=== PATIENT | male | born 1990 | race African-American/Black ===

== ENCOUNTER 2022-07-18 04:00 | Emergency (ER) | payer OTHER ==
[~2022-07-18] VITALS: Ht 182.9 cm; Wt 145.1 kg
[2022-07-18 04:05] VITALS: BP 146/75
--- NOTE | 2022-07-18 04:08 | NUR ---
TO LOBBY A/W BED AMBULATORY
[2022-07-18 05:45] LABS: BASOPHILS % (AUTO) 0.2 % (0.0-2.0); EOSINOPHILS # (AUTO) 0.2 K/uL (0-0.4); EOSINOPHILS % (AUTO) 2.9 % (0.0-4.0); HEMATOCRIT 42.4 % (36-52); HEMOGLOBIN 13.6 g/dL (12.0-18.0); LYMPHOCYTES # (AUTO) 2.2 K/uL (2.0-11.5); LYMPHOCYTES % (AUTO) 33.9 % (20.5-51.1); MEAN CORPUSCULAR HEMOGLOBIN 25 pg (27-31); MEAN CORPUSCULAR HGB CONC 32 g/dL (33-37); MEAN CORPUSCULAR VOLUME 76.8 fL (80-94); MONOCYTES # (AUTO) 0.7 K/uL (0.8-1.0); NEUTROPHILS # (AUTO) 3.4 K/uL (1.8-7.7); PLATELET COUNT (AUTO) 194 K/uL (140-450); RED BLOOD CELL COUNT(AUTO) 5.52 MIL/uL (4.20-6.10); RED CELL DISTRIBUTION WIDTH 15.9 % (11.6-13.7); WHITE BLOOD COUNT (AUTO) 6.5 K/uL (4.8-10.8)
[2022-07-18 06:13] LABS: ALBUMIN 3.5 g/dL (3.4-5.0); ANION GAP 9.4 (8-16); CARBON DIOXIDE 29.2 mmol/L (21-32); CREATININE 1.1 mg/dL (0.6-1.3); POTASSIUM 4.6 mmol/L (3.5-5.1); TOTAL BILIRUBIN 0.3 mg/dL (0.0-1.0)
[2022-07-18] MEDS ORDERED: MECLIZINE 25 MG TAB PO ONE (06:20)
[2022-07-18] MEDS ORDERED: ONDANSETRON 4 MG ODT PO ONE (06:20)
[2022-07-18] MEDS ORDERED: DEXAMETHASONE 4 MG/ML VIAL PO ONE (06:25)
--- NOTE | 2022-07-18 06:32 | NUR ---
PT TAKEN TO CHAIR C
--- NOTE | 2022-07-18 06:46 | NUR ---
STREP AND COVID/TEVIN SWABS COLLECTED AND WALKED TO LAB
--- NOTE | 2022-07-18 06:59 | NUR ---
32 Y/O MALE BIBS, C/O SORE THROAT. PT STATES HIS "THROAT IS CLOSING UP." A/OX4, LETHARGIC AND DIFFICULT TO AROUSE. AMBULATORY W/O ASSISTANCE. UNLABORED BREATHING AND SPEAKING IN FULL SENTENCES.
--- NOTE | 2022-07-18 07:17 | NUR ---
Pt report given to KWAKU POPE. Transfer of care at this time.
[2022-07-18 07:23] LABS: ACETAMINOPHEN < 0.5 ug/ml (10-30); SALICYLATE < 2.8 mg/dL (2.8-20.0)
[2022-07-18 07:26] LABS: BARBITURATE, URINE NEGATIVE ng/ml (NEG <=200); BENZODIAZEPINE, URINE NEGATIVE ng/mL (NEG <=200); CANNABINOID, URINE NEGATIVE ng/mL (NEG <=50); COCAINE, URINE NEGATIVE ng/mL (NEG <=300); OPIATE, URINE NEGATIVE ng/mL (NEG <=2000); PHENCYCLIDINE SCREEN,URINE NEGATIVE ng/mL (NEG <=25)
--- NOTE | 2022-07-18 08:00 | NUR ---
PATIENT LAYING IN BED WITH EYES CLOSED, REFUSING TO ANSWER QUESTIONS, PATIENT PLACED ON BEDSIDE [employer]ELOPER, DR. ERWIN AWARE OF PATIENT STATUS.
[2022-07-18] MEDS ORDERED: cephALEXin 500 MG CAP PO ONE (08:20)
[2022-07-18] MEDS ORDERED: CEPH-588 PO (08:25)
--- NOTE | 2022-07-18 09:10 | NUR ---
PT REFUSING TO LEAVE, SECURITY CALLED BEDSIDE TO ASSIST.
[2022-07-18 09:11] VITALS: BP 148/91
--- NOTE | 2022-07-18 09:12 | NUR ---
Patient discharged with v/s stable. Written and verbal after care instructions ABOUT STIMULANT USE DISORDER AND STREP THROAT given and explained. Patient alert, oriented and verbalized understanding of instructions. Ambulatory with steady gait. All questions addressed prior to discharge. ID band removed. Patient advised to follow up with PMD. Rx of KEFLEX given. Patient educated on indication of medication including possible reaction and side effects. Opportunity to ask questions provided and answered.
== END 2022-07-18 09:12 | disposition home or self-care (01) ==
LOC: MED 04:00
DX: J02.0 Streptococcal pharyngitis (principal); Z20.822 Contact with and (suspected) exposure to COVID-19; F15.10 Other stimulant abuse, uncomplicated
CPT/HCPCS: 36415; 80053; 80305; 84484; 85025; 87081; 87426; 93005; 99285; G0480; G0482; J1100; J8597; Q0162